=== PATIENT | male | born 1965 | race American Indian/Alaskan Native ===

== ENCOUNTER 2018-04-23 07:53 | Outpatient (CLI) | payer BC | END 2018-04-23 07:54 | disposition home or self-care (01) | LOC: WOUND 07:53 | PROVIDERS: ATTEND Surgery | DX: N30.41 Irradiation cystitis with hematuria (principal); C61 Malignant neoplasm of prostate; I10 Essential (primary) hypertension; E78.00 Pure hypercholesterolemia, unspecified | CPT/HCPCS: 99183; G0277 ==

== ENCOUNTER 2018-04-30 14:40 | Outpatient (CLI) | payer BC | END 2018-04-30 14:41 | disposition home or self-care (01) | LOC: WOUND 14:40 | PROVIDERS: ATTEND Surgery | DX: N30.41 Irradiation cystitis with hematuria (principal); C61 Malignant neoplasm of prostate; I10 Essential (primary) hypertension; E78.00 Pure hypercholesterolemia, unspecified | CPT/HCPCS: 99183; G0277 ==

== ENCOUNTER 2018-05-04 15:00 | Outpatient (CLI) | payer BC | END 2018-05-04 15:01 | disposition home or self-care (01) | LOC: WOUND 15:00 | CPT/HCPCS: 99183; G0277 ==

== ENCOUNTER 2018-05-05 15:00 | Outpatient (CLI) | payer BC | END 2018-05-05 15:01 | disposition home or self-care (01) | LOC: WOUND 15:00 | CPT/HCPCS: 99183; G0277 ==

== ENCOUNTER 2018-05-06 15:00 | Outpatient (CLI) | payer BC | END 2018-05-06 15:01 | disposition home or self-care (01) | LOC: WOUND 15:00 | CPT/HCPCS: 99183; G0277 ==

== ENCOUNTER 2018-05-07 12:21 | Outpatient (CLI) | payer BC | END 2018-05-07 12:22 | disposition home or self-care (01) | LOC: WOUND 12:21 | CPT/HCPCS: 99183; G0277 ==

== ENCOUNTER 2018-05-10 14:48 | Outpatient (CLI) | payer BC | END 2018-05-10 14:49 | disposition home or self-care (01) | LOC: WOUND 14:48 | CPT/HCPCS: 99183; G0277 ==

== ENCOUNTER 2018-05-11 14:04 | Outpatient (CLI) | payer BC | END 2018-05-11 14:05 | disposition home or self-care (01) | LOC: WOUND 14:04 | CPT/HCPCS: G0277; G0463; 99183; 99212 ==

== ENCOUNTER 2018-05-12 15:00 | Outpatient (CLI) | payer BC | END 2018-05-12 15:01 | disposition home or self-care (01) | LOC: WOUND 15:00 | CPT/HCPCS: 99183; G0277 ==

== ENCOUNTER 2018-05-13 14:51 | Outpatient (CLI) | payer BC | END 2018-05-13 14:52 | disposition home or self-care (01) | LOC: WOUND 14:51 | CPT/HCPCS: 99183; G0277 ==

== ENCOUNTER 2018-05-18 15:00 | Outpatient (CLI) | payer BC | END 2018-05-18 15:01 | disposition home or self-care (01) | LOC: WOUND 15:00 | CPT/HCPCS: 99183; G0277 ==

== ENCOUNTER 2018-05-19 15:00 | Outpatient (CLI) | payer BC | END 2018-05-19 15:01 | disposition home or self-care (01) | LOC: WOUND 15:00 | CPT/HCPCS: 99183; G0277 ==

== ENCOUNTER 2018-05-20 14:50 | Outpatient (CLI) | payer BC | END 2018-05-20 14:51 | disposition home or self-care (01) | LOC: WOUND 14:50 | CPT/HCPCS: 99183; G0277 ==

== ENCOUNTER 2018-05-21 14:09 | Outpatient (CLI) | payer BC | END 2018-05-21 14:10 | disposition home or self-care (01) | LOC: WOUND 14:09 | CPT/HCPCS: 99183; G0277 ==

== ENCOUNTER 2018-05-26 14:40 | Outpatient (CLI) | payer BC | END 2018-05-26 14:41 | disposition home or self-care (01) | LOC: WOUND 14:40 | CPT/HCPCS: 99183; G0277 ==